=== PATIENT | female | born 1970 | race Caucasian/White ===

== ENCOUNTER → 2016-11-22 | Outpatient (CLI) | payer MEDICAID ==
--- NOTE | 2016-11-23 10:22 | MM ---
Reason for exam: screening (asymptomatic). Baseline mammogram. History: Taking hormonal contraceptives for 30 years beginning at age 16. Physical Findings: Nurse did not find any significant physical abnormalities on exam. MG 3D Screening Mammo W/Cad Bilateral CC and MLO view(s) were taken. The breast tissue is heterogeneously dense. This may lower the sensitivity of mammography. There is no discrete abnormality. ASSESSMENT: Negative, BI-RAD 1 RECOMMENDATION: Routine screening mammogram of both breasts in 1 year.
== END | disposition home or self-care (01) ==
LOC: RADMAMWWP 10:59
PROVIDERS: ATTEND Family Medicine
DX: Z12.31 Encounter for screening mammogram for malignant neoplasm of breast (principal)
CPT/HCPCS: 77063; G0202

== ENCOUNTER → 2016-12-07 | Outpatient (CLI) | payer MEDICAID ==
--- NOTE | 2016-12-07 21:26 | MR ---
EXAMINATION TYPE: MR brain wo/w con DATE OF EXAM: 12/07/2016 9:21 PM COMPARISON: CT brain November 08, 2016 HISTORY: Headaches, Dizzy, Decrease in Hearing RIGHT Side. Malignant neoplasm of cerebrum per order. TECHNIQUE: Multiplanar, multisequence images of the brain and brainstem is performed without and with IV contras t, utilizing 12 mL intravenous MultiHance . FINDINGS: Diffusion weighted images demonstrate no evidence of a recent infarct or other diffusion ab normality. There is no extra-axial fluid collection or significant white matter signal abnormality. The ventricular system and cisternal spaces are normal in size and appearance. The brain volume is age appropriate. Midline structures demonstrate normal morphology. The craniocervical junction appears within normal limits. Post contrast images demonstrate no abnormal enhancement. The dural venous sinuses appear pa tent. The visualized sinuses are clear and the globes are intact. No suspicious fluid signal is seen in mastoid air cells bilaterally. IMPRESSION: No significant finding is seen to account for patient's symptoms.
== END | disposition home or self-care (01) ==
LOC: RADMRIMAIN 20:42
PROVIDERS: ATTEND Psychiatry & Neurology Neurology
DX: D49.6 Neoplasm of unspecified behavior of brain (principal)
CPT/HCPCS: 70553; A9577

== ENCOUNTER → 2016-12-14 | Outpatient (CLI) | payer MEDICAID ==
--- NOTE | 2016-12-29 21:34 | ENG ---
DATE OF SERVICE: 12/14/2016 INDICATION FOR EXAMINATION: [id number] presented with vertigo, history of ear infection in the past, associated unsteady gait, imbalance and dizziness. CALORIC TEST: Unilateral weakness on the right. No directional preponderance. GAZE TEST: Negative. SINUSOIDAL TRACKING TEST: Minimal breakups noted. OKN TEST: No asymmetry. SPONTANEOUS NYSTAGMUS: Eye open negative. Eye closed negative. POSITIONAL NYSTAGMUS: Supine negative. Right lateral negative. Left lateral negative. SUKUMAR-HALLPIKE TEST: Mild dizziness with nystagmus when the right ear was in down position. CONCLUSIONS: The unilateral weakness on the right is indicative of right peripheral and/or nerve end-organ vestibular dysfunction. The absence of spontaneous nystagmus suggests that the lesion is chronic and well compensated. Clinical correlation is advised.
== END | disposition home or self-care (01) ==
LOC: NEUROMAIN 06:25
PROVIDERS: ATTEND Psychiatry & Neurology Neurology
DX: H81.11 Benign paroxysmal vertigo, right ear (principal)
CPT/HCPCS: 92537; 92540

== ENCOUNTER → 2021-06-07 | Outpatient (CLI) | payer OTHER, BC ==
--- NOTE | 2021-06-09 08:17 | MM ---
Reason for exam: screening (asymptomatic). Last mammogram was performed 4 years and 7 months ago. History: Took hormonal contraceptives for 30 years beginning at age 16. Physical Findings: A clinical breast exam by your physician is recommended on an annual basis and results should be correlated with mammographic findings. MG 3D Screening Mammo W/Cad Bilateral CC and MLO view(s) were taken. Prior study comparison: November 22, 2016, bilateral MG 3d screening mammo w/cad. There is chronic nodularity bilaterally. No significant changes when compared with prior studies. ASSESSMENT: Benign, BI-RAD 2 RECOMMENDATION: Routine screening mammogram of both breasts in 1 year.
== END | disposition home or self-care (01) ==
LOC: RADMAMWWP 08:16
PROVIDERS: ATTEND Family Medicine
DX: Z12.31 Encounter for screening mammogram for malignant neoplasm of breast (principal)
CPT/HCPCS: 77063; 77067

== ENCOUNTER → 2022-07-04 | Outpatient (CLI) | payer BC ==
--- NOTE | 2022-07-05 10:48 | MM ---
Reason for Exam: Screening (asymptomatic). Last mammogram was performed 1 year(s) and 1 month(s) ago. Patient History: Menarche at age 14. First Full-Term at age 28. Late child-bearing (after 30). Postmenopausal. Hormonal Contraceptives, starting at age 16 for 30 years. Risk Values: Carolyn 5 year model risk: 1.4%. NCI Lifetime model risk: 10.4%. Prior Study Comparison: 11/22/2016 Bilateral Screening Mammogram, [facility]. 06/07/2021 Bilateral Screening Mammogram, [facility]. Tissue Density: The breast tissue is heterogeneously dense. This may lower the sensitivity of mammography. Findings: Analyzed By CAD. There is no suspicious group of microcalcifications or new suspicious mass in either breast. Overall Assessment: Negative, BI-RAD 1 Management: Screening Mammogram of both breasts in 1 year. A clinical breast exam by your physician is recommended on an annual basis and results should be correlated with mammographic findings. Electronically signed and approved by: Vince Mitchell DO
== END ==
LOC: RADMAMWWP 14:49
PROVIDERS: ATTEND Family Medicine
DX: Z12.31 Encounter for screening mammogram for malignant neoplasm of breast (principal)
CPT/HCPCS: 77063; 77067

== ENCOUNTER → 2023-08-22 | Outpatient (CLI) | payer BC ==
--- NOTE | 2023-08-23 08:54 | MM ---
Reason for Exam: Screening (asymptomatic). Last mammogram was performed 1 year(s) and 2 month(s) ago. Patient History: Menarche at age 14. First Full-Term at age 28. Late child-bearing (after 30). Postmenopausal. Patient has history of breast feeding. Hormonal Contraceptives, starting at age 16 for 30 years. Risk Values: Carolyn 5 year model risk: 1.5%. NCI Lifetime model risk: 10.2%. Prior Study Comparison: 11/22/2016 Bilateral Screening Mammogram, [facility]. 06/07/2021 Bilateral Screening Mammogram, [facility]. 07/04/2022 Bilateral MG 3D screening mammo w/cad, [facility]. Tissue Density: The breast tissue is heterogeneously dense. This may lower the sensitivity of mammography. Findings: Analyzed By CAD. There is no suspicious group of microcalcifications or new suspicious mass. Overall Assessment: Negative, BI-RAD 1 Management: Screening Mammogram of both breasts in [address] [facility] will attempt to contact patient to return for supplemental views and ultrasound if indicated. Patient should continue monthly self-breast exams. A clinical breast exam by your physician is recommended on an annual basis. This exam should not preclude additional follow-up of suspicious palpable abnormalities. Note on Carolyn scores and lifetime risk: 1. A Carolyn score greater than 3% is considered moderate risk. If this is the case, consider specialist referral to assess eligibility for a risk reducing agent. 2. If overall lifetime risk for the development of breast cancer is 20% or higher, the patient may qualify for future screening with alternating mammogram and breast MRI. Electronically signed and approved by: Vince Mitchell DO
== END | disposition home or self-care (01) ==
LOC: RADMAMWWP 12:12
PROVIDERS: ATTEND Family Medicine
DX: Z12.31 Encounter for screening mammogram for malignant neoplasm of breast (principal); Z78.0 Asymptomatic menopausal state
CPT/HCPCS: 77063; 77067

== ENCOUNTER → 2024-12-20 | Outpatient (CLI) | payer BC ==
--- NOTE | 2024-12-20 14:27 | MM ---
Reason for Exam: Screening (asymptomatic). Last mammogram was performed 1 year(s) and 3 month(s) ago. Patient History: Menarche at age 14. First Full-Term at age 28. Late child-bearing (after 30). Postmenopausal. Patient has history of breast feeding. Hormonal Contraceptives, starting at age 16 for 30 years. Risk Values: Carolyn 5 year model risk: 1.6%. NCI Lifetime model risk: 10.0%. Prior Study Comparison: 06/07/2021 Bilateral Screening Mammogram, [facility]. 07/04/2022 Bilateral MG 3D screening mammo w/cad, [facility]. 08/22/2023 Bilateral MG 3D screening mammo w/cad, [facility]. Tissue Density: The breasts are heterogeneously dense, which may obscure small masses. Findings: Analyzed By CAD. Right breast: There is no suspicious group of microcalcifications or new suspicious mass. Left breast: There is no suspicious group of microcalcifications or new suspicious mass. Overall Assessment: Negative, BI-RAD 1 Management: Screening Mammogram of both breasts in [address] [facility] will attempt to contact patient to return for supplemental views and ultrasound if indicated. Patient should continue monthly self-breast exams. A clinical breast exam by your physician is recommended on an annual basis. This exam should not preclude additional follow-up of suspicious palpable abnormalities. Note on Carolyn scores and lifetime risk: 1. A Carolyn score greater than 3% is considered moderate risk. If this is the case, consider specialist referral to assess eligibility for a risk reducing agent. 2. If overall lifetime risk for the development of breast cancer is 20% or higher, the patient may qualify for future screening with alternating mammogram and breast MRI. [facility], , 12/20/2024 2:21 PM. Electronically signed and approved by: Vince Mitchell DO
== END | disposition home or self-care (01) ==
LOC: RADMAMWWP 11:16
PROVIDERS: ATTEND Family Medicine
DX: Z12.31 Encounter for screening mammogram for malignant neoplasm of breast (principal); R92.333 Mammographic heterogeneous density, bilateral breasts; Z78.0 Asymptomatic menopausal state
CPT/HCPCS: 77063; 77067